=== PATIENT | female | born 1985 | race Two or more races ===

== ENCOUNTER 2023-05-21 07:42 | Emergency (ER) | payer OTHER ==
[~2023-05-21] VITALS: Ht 157.5 cm; Wt 63.5 kg
[~2023-05-21 07:42] MED LIST: ACCUNEB0.63 MG/3; AMOX1TAB12 PO; AMOXICILLIN500 MG PO; ASMANEX110 MC1 IH; PROVENTIL S1 ML/5 MG IH; ZITHROMAX500 MG PO; ZYRTEC10 MG PO
[2023-05-21 09:37] LABS: HEMATOCRIT 38.1 % (36.0-45.00); HEMOGLOBIN 12.9 g/dL (12.0-15.00); MEAN CELL VOLUME 89.2 fL (80.00-100.00); MEAN CORPUSCULAR HEMOGLOBIN 30.2 pg (27.00-32.0); MEAN CORPUSCULAR HGB CONC 33.8 g/dl (32.0-36.0); PLATELET COUNT 266 K/uL (150-450); RED BLOOD COUNT 4.27 M/uL (4.00-6.00); RED CELL DISTRIBUTION WIDTH 13.2 % (11.5-14.5)
== END 2023-05-21 12:24 | disposition home or self-care (01) ==
LOC: ER 07:42
PROVIDERS: General Practice
DX: J45.998 Other asthma (principal); Z20.822 Contact with and (suspected) exposure to COVID-19

== ENCOUNTER 2023-08-05 12:28 | Emergency (ER) | payer OTHER ==
[~2023-08-05] VITALS: Ht 157.5 cm; Wt 68.9 kg
[2023-08-05 15:16] LABS: HEMATOCRIT 40.8 % (36.0-45.00); HEMOGLOBIN 13.6 g/dL (12.0-15.00); MEAN CELL VOLUME 90.3 fL (80.00-100.00); MEAN CORPUSCULAR HEMOGLOBIN 30.2 pg (27.00-32.0); MEAN CORPUSCULAR HGB CONC 33.4 g/dl (32.0-36.0); PLATELET COUNT 312 K/uL (150-450); RED BLOOD COUNT 4.52 M/uL (4.00-6.00); RED CELL DISTRIBUTION WIDTH 13.2 % (11.5-14.5)
== END 2023-08-05 16:30 | disposition home or self-care (01) ==
LOC: ER 12:29
PROVIDERS: General Practice
DX: J45.909 Unspecified asthma, uncomplicated (principal); Z20.822 Contact with and (suspected) exposure to COVID-19

== ENCOUNTER 2023-11-11 04:30 | Emergency (ER) | payer OTHER ==
[~2023-11-11] VITALS: Ht 157.5 cm; Wt 67.1 kg
[2023-11-11] MEDS ORDERED: MILLIPRED5 MG (04:36)
[2023-11-11] MEDS ORDERED: PROAIR RESPICL90 MCG (04:36)
[2023-11-11] MEDS ORDERED: GUAIFENESIN/DEXTROMETHORPHAN 100 MG/5 ML ML PO ONE (05:00)
[2023-11-11] MEDS ORDERED: IPRATROPIUM/ALBUTEROL SULFATE 3 ML AMPUL.NEB IH SCH (05:00)
[2023-11-11] MEDS ORDERED: METHYLPREDNISOLONE SOD SUCC 125 MG VIAL IV ONE (05:00)
[2023-11-11 05:44] LABS: ABG PH 7.362 (7.35-7.45); ABG PO2 64.3 mmHg (80-100); ABG pCO2 44.3 mmHg (35-45); BICARBONATE 24.6 mmol/l (23-25); SaO2 91.2 %; allen test SATISFACTORY; puncture site RADIAL LEFT
[2023-11-11 05:45] LABS: o2 21 %
[2023-11-11 06:02] LABS: HEMATOCRIT 40.8 % (36.0-45.00); HEMOGLOBIN 13.8 g/dL (12.0-15.00); MEAN CELL VOLUME 89.6 fL (80.00-100.00); MEAN CORPUSCULAR HEMOGLOBIN 30.4 pg (27.00-32.0); MEAN CORPUSCULAR HGB CONC 33.9 g/dl (32.0-36.0); PLATELET COUNT 331 K/uL (150-450); RED BLOOD COUNT 4.56 M/uL (4.00-6.00)
[2023-11-11 06:19] LABS: ALBUMIN 3.5 gm/dL (3.4-5.0); BILIRUBIN TOTAL 0.66 mg/dL (0.3-1.2); CALCIUM 9.5 mg/dL (8.5-10.1); CREATININE SERUM 0.85 mg/dL (0.55-1.02); GFR 74.85; TOTAL PROTEIN 7.5 gm/dL (6.4-8.2)
[2023-11-11] MEDS ORDERED: MEDROLPACK PO (07:09)
[2023-11-11] MEDS ORDERED: IPRAT-ALBUT 0.5-3 ML IH (07:09)
== END 2023-11-11 07:20 | disposition home or self-care (01) ==
LOC: ER 04:30
PROVIDERS: General Practice
DX: J45.901 Unspecified asthma with (acute) exacerbation (principal); Z20.822 Contact with and (suspected) exposure to COVID-19

== ENCOUNTER 2024-10-08 17:03 | Emergency (ER) | payer OTHER ==
[~2024-10-08] VITALS: Ht 160 cm; Wt 56.7 kg
[~2024-10-08 17:03] MED LIST changes: +IPRAT-ALBUT 0.5-3 ML IH; +MEDROLPACK PO; +MILLIPRED5 MG; +PROAIR RESPICL90 MCG
[2024-10-08 17:33] VITALS: BP 127/62; O2SAT 100
[2024-10-08] MEDS ORDERED: MAGNESIUM SULFATE IN WATER 2 GM/50 ML PIGGYBAG IV ONE (17:45)
[2024-10-08] MEDS ORDERED: LEVALBUTEROL HCL 1.25 MG/3 ML SOLUTION IH SCH (17:45)
[2024-10-08] MEDS ORDERED: IPRATROPIUM BROMIDE 0.5 MG/2.5 ML AMPUL.NEB IH SCH (17:45)
[2024-10-08] MEDS ORDERED: METHYLPREDNISOLONE SOD SUCC 125 MG VIAL IV ONE (17:45)
[2024-10-08] MEDS ORDERED: MAGNESIUM SULFATE 50% 1,000 MG/2 ML VIAL ONE (18:06)
[2024-10-08] MEDS ORDERED: METHYLPREDNISOLONE SOD SUCC 125 MG VIAL ONE (18:06)
[2024-10-08 18:30] LABS: HEMOGLOBIN 13.5 g/dL (12.0-15.00); MEAN CELL VOLUME 90.9 fL (80.00-100.00); MEAN CORPUSCULAR HEMOGLOBIN 29.9 pg (27.00-32.0); MEAN CORPUSCULAR HGB CONC 32.8 g/dl (32.0-36.0); PLATELET COUNT 297 K/uL (150-450); RED BLOOD COUNT 4.51 M/uL (4.00-6.00)
[2024-10-08 18:52] LABS: ALBUMIN 3.8 gm/dL (3.4-5.0); BILIRUBIN TOTAL 0.98 mg/dL (0.3-1.2); CALCIUM 9.4 mg/dL (8.5-10.1); CREATININE SERUM 0.77 mg/dL (0.55-1.02); GFR 83.45; GLOBULINA 3.9 G/DL (2.4-3.5); POTASSIUM 4.15 mEq/L (3.5-5.1); TOTAL PROTEIN 7.7 gm/dL (6.4-8.2)
[2024-10-08 20:51] LABS: ABG PH 7.388 (7.35-7.45); ABG PO2 82.6 mmHg (80-100); ABG pCO2 33.9 mmHg (35-45); BASE EXCESS -4.1 mmol/l; BICARBONATE 19.9 mmol/l (23-25); SaO2 95.8 %
[2024-10-08] MEDS ORDERED: LEVALBUTEROL HCL 1.25 MG/3 ML SOLUTION IH ONE (21:00)
[2024-10-08] MEDS ORDERED: IPRATROPIUM BROMIDE 0.5 MG/2.5 ML AMPUL.NEB IH ONE (21:01)
[2024-10-08 21:26] LABS: allen test SATISFACTORY; o2 21 %; puncture site RADIAL RIGHT
[2024-10-08] MEDS ORDERED: SINGULAIR10 MG PO (21:37)
[2024-10-08] MEDS ORDERED: PEPCID AC20 MG PO (21:37)
== END 2024-10-08 21:52 | disposition home or self-care (01) ==
LOC: ER 17:05
PROVIDERS: General Practice
DX: J45.901 Unspecified asthma with (acute) exacerbation (principal); Z20.822 Contact with and (suspected) exposure to COVID-19
CPT/HCPCS: 36415; 71046; 82803; 94640; 96365; 99284; J3475; J3490